=== PATIENT | female | born 1995 | race Caucasian/White ===

== ENCOUNTER 2018-01-08 09:10 | Emergency (ER) | payer BC ==
[~2018-01-08] VITALS: Ht 180.3 cm; Wt 115.1 kg
[~2018-01-08 09:10] MED LIST: BACLOFEN10 MG PO; MOTRIN600 MG PO; PERCOCET 5/31 TABLET PO
[2018-01-08 09:16] VITALS: BP 124/77
[2018-01-08 09:52] LABS: HEMATOCRIT 38.3 % (36.0-46.0); HEMOGLOBIN 12.9 G/DL (11.9-15.5); MCH 30.3 PG (29.0-34.0); MCHC 33.7 G/DL (30.0-36.0); MCV 89.9 FL (83-99); PLATELET COUNT 269 K/uL (156-360); RBC DIS.WIDTH-CV 12.8 % (11.8-14.6); RBC DIS.WIDTH-SD 42.2 % (39-53); RED BLOOD COUNT 4.26 M/uL (3.80-5.20); WHITE BLOOD COUNT 10.6 K/uL (4.1-10.2)
[2018-01-08 10:03] LABS: CHLORIDE 111 mEq/L (99-109); POTASSIUM 4.5 mEq/L (3.7-5.4); SODIUM 143 mEq/L (136-147)
[2018-01-08 10:05] LABS: GLUCOSE 89 mg/dL (70-99)
[2018-01-08 10:09] LABS: CREATININE 0.7 mg/dL (0.6-1.3); GFR ESTIMATE (CALCULATED) > 59 mL/min/
[2018-01-08 10:10] LABS: UREA NITROGEN (BUN) 12 mg/dL (9-23)
[2018-01-08 10:19] LABS: QUANTITATIVE HCG < 4.0 MIU/ML
[2018-01-08] MEDS ORDERED: TYLENOL WITH C1 EACH PO (10:55)
== END 2018-01-08 11:20 | disposition home or self-care (01) ==
LOC: EME 09:10
PROVIDERS: Emergency Medicine
DX: R10.30 Lower abdominal pain, unspecified (principal); N94.6 Dysmenorrhea, unspecified; Z88.1 Allergy status to other antibiotic agents
CPT/HCPCS: 80048; 84702; 85027; 99281; 99284; J1885; J7030